=== PATIENT | female | born 1955 | race Caucasian/White ===

== ENCOUNTER 2020-01-04 06:27 | Emergency (ER) | payer OTHER ==
[~2020-01-04] VITALS: Ht 167.6 cm; Wt 75.0 kg
[2020-01-04 06:46] VITALS: BP 129/72
[2020-01-04] MEDS ORDERED: PRED20TA PO (07:15)
[2020-01-04] MEDS ORDERED: HYDR25TA PO (07:15)
--- NOTE | 2020-01-04 07:19 | PHYS DOC ---
Past Medical History Past Medical History: No Pertinent History Past Surgical History: Tonsillectomy Additional Past Surgical Histo: LEFT FOOT SURGERY Smoking Status: Never Smoker Alcohol Use: None General Adult EDM: Chief Complaint: SKIN RASH/ABSCESS HPI: HPI: The history was obtained from the patient. Patient is a [age]-year-old female with PMH psoriasis who presents with a chief complaint of rash. Patient states she has been working at her mother's yard recently. She states over the past 24 hours she is noticed a extremely itchy rash to her right arm that is spread to her anterior chest wall. She has tried topical Benadryl with minimal relief. She states that she notes that she was exposed to poison wendy and thinks that is what she has. She denies any eye involvement. She denies any mouth involvement. She has no difficulty breathing. She states that the rash is not painful. No other complaints. Review of Systems: Review of Systems: Constitutional: Denies fever or chills. [] Eyes: Denies change in visual acuity. [] HENT: Denies nasal congestion or sore throat. [] Respiratory: Denies cough or shortness of breath. [] Cardiovascular: Denies chest pain or edema. [] GI: Denies abdominal pain, nausea, vomiting, bloody stools or diarrhea. [] : Denies dysuria. [] Musculoskeletal: Denies back pain or joint pain. [] Integument: Positive for rash Neurologic: Denies headache, focal weakness or sensory changes. [] Endocrine: Denies polyuria or polydipsia. [] Lymphatic: Denies swollen glands. [] Psychiatric: Denies depression or anxiety. [] Heart Score: Risk Factors: Risk Factors: DM, Current or recent (<one month) smoker, HTN, HLP, family history of CAD, obesity. Risk Scores: Score 0 - 3: 2.5% MACE over next 6 weeks - Discharge Home Score 4 - 6: 20.3% MACE over next 6 weeks - Admit for Clinical Observation Score 7 - 10: 72.7% MACE over next 6 weeks - Early Invasive Strategies Allergies: Allergies: Allergies Coded Allergies Type Severity Reaction Last Updated Verified acetaminophen Allergy Intermediate 01/04/20 Yes codeine Allergy Intermediate 01/04/20 Yes hydrocodone Allergy Intermediate 01/04/20 Yes oxycodone Allergy Intermediate 8/5/20 Yes Physical Exam: PE: Constitutional: Well developed, well nourished, no acute distress, non-toxic appearance. [] HENT: Normocephalic, atraumatic, bilateral external ears normal, oropharynx moist, no oral exudates, nose normal. [] Eyes: PERRLA, EOMI, conjunctiva normal, no discharge. [] Neck: Normal range of motion, no tenderness, supple, no stridor. [] Cardiovascular:Heart rate regular rhythm, no murmur [] Lungs & Thorax: Bilateral breath sounds clear to auscultation [] Abdomen: soft, no tenderness, no masses, no pulsatile masses. [] Skin: Scattered patches of erythematous and pruritic flat rash to the ventral aspect of the right forearm consistent with contact dermatitis. No petechiae, purpura, ecchymosis, or bulla appreciated. Back: No tenderness, no CVA tenderness. [] Extremities: No tenderness, no cyanosis, no clubbing, ROM intact, no edema. [] Neurologic: Alert and oriented X 3, normal motor function, normal sensory function, no focal deficits noted. [] Psychologic: Affect normal, judgement normal, mood normal. [] Current Patient Data: Vital Signs: Vital Signs Date Time Temp Pulse Resp B/P (MAP) Pulse Ox O2 Delivery O2 Flow Rate FiO2 01/04/20 06:46 97.6 69 16 129/72 (91) 98 Room Air 97.6 EKG: EKG: [] Radiology/Procedures: Radiology/Procedures: [] Course & Med Decision Making: Course & Med Decision Making Pertinent Labs and Imaging studies reviewed. (See chart for details) Patient is a well-appearing 64-year-old female who presents with chief complaint of pruritic rash. Consistent with contact dermatitis likely secondary to poison wendy exposure. Patient will be given a course of steroids. She was given [id number] recommendations for Zanfel to aid in minimizing the oil production. She will also be given a prescription hydroxyzine to aid in pruritic symptoms. Return precautions discussed and understood. Stable for discharge home. Chey Disclaimer: Chey Disclaimer: This electronic medical record was generated, in whole or in part, using a voice recognition dictation system. Departure Departure Impression: Primary Impression: Contact dermatitis Qualified Codes: L24.7 - Irritant contact dermatitis due to plants, except food Disposition: HOME, SELF-CARE Condition: GOOD Patient Instructions: Poison Wendy Scripts Hydroxyzine Hcl (HYDROXYZINE HCL) 25 Mg Tablet 1 TAB PO TID, #16 TAB as needed for itching Prov: ABEL ALAS DO 01/04/20 Prednisone (PREDNISONE) 20 Mg Tablet 10 MG PO DAILY for 84 Days, #42 TAB 60 mg x 4 days, 50 mg x 4 days, 40 mg x 4 days, 30 mg x 4 days, 20 mg x 4 days, 10 mg x 2 days. Total of 22 days Prov: ABEL ALAS DO 01/04/20 Justicifation of Admission Dx: Justifications for Admission: Justification of Admission Dx: N/A ABEL ALAS DO Jan 04, 2020 07:19
== END 2020-01-04 07:27 | disposition home or self-care (01) ==
LOC: ER 06:27
DX: L24.7 Irritant contact dermatitis due to plants, except food (principal); R21 Rash and other nonspecific skin eruption; Z90.89 Acquired absence of other organs; Z98.890 Other specified postprocedural states; Z88.2 Allergy status to sulfonamides; Z88.5 Allergy status to narcotic agent
CPT/HCPCS: 99283